=== PATIENT | male | born 1955 | race Caucasian/White ===

== ENCOUNTER 2018-12-29 09:17 | Outpatient (CLI) | payer MEDICARE, OTHER ==
--- NOTE | 2018-12-31 17:05 | CONSULTATION REPORT ---
CHIEF COMPLAINT: Back pain. HISTORY OF PRESENT ILLNESS: Patient is a 63-year-old male who presents for evaluation of chronic low back pain. He states that he has had pain for many years and has actually been seeing Dr. Rivero at the [facility] in [place]. However, the patient was not pleased with his care there and ended up switching to Dr. Figueroa at [facility] in [place]. Apparently, the patient is planning on having a spinal cord stimulator for treatment of his low back pain to be performed by Dr. Figueroa, however, the patient has recently diagnosed atrial fibrillation and is working with his director critical care, Dr. Early for evaluation to obtain surgical clearance to have the stimulator placed. Patient presents today requesting pain medication management. He states that Dr. Figueroa in [place] is not willing to prescribe pain medications. He wants to stay with Dr. Figueroa for interventional procedures, but he is looking for a pain medication management physician. Low back pain is described as chronic, throbbing, aching, stabbing in character rated 10/10 intensity. Pain is located diffusely throughout the low back with radiation to the lower extremities. He endorses generalized weakness in the lower extremities but denies focal weakness. He denies saddle anesthesia, bowel or bladder incontinence. Pain is worse with any sort of activity, especially standing, walking, bending, lifting. Pain is improved with rest and pain medications. He is currently taking Hysingla ER 20 mg daily and oxycodone 10 mg q6 hours p.r.n. He also takes alprazolam 1 mg t.i.d. Patient states that these medications only provide very minimal pain relief and he would like much stronger medications. PAST MEDICAL HISTORY: PHM includes agoraphobia, PTSD, anxiety, depression. PAST SURGICAL HISTORY: Partial surgical colon resection. History of pleomorphic adenoma of the salivary gland and history of cholecystectomy. FAMILY HISTORY: FH was reviewed and is shown in chart. Mother and sister have history of breast cancer. Father is with history of pancreatic cancer. SOCIAL HISTORY: Patient is a current everyday smoker. He denies alcohol or illegal drug use. He does drink caffeine daily. REVIEW OF SYSTEMS: A 14-point review of systems was performed and was normal except as identified in HPI. For complete review of systems see medical chart. PAST TREATMENT HISTORY: Interventional lumbar procedures performed by Dr. Rivero. No medical records on specific procedures performed. PAIN MEDICATION HISTORY: Hysingla ER 20 mg daily, oxycodone 10 mg q6 p.r.n., alprazolam 1 mg t.i.d. PHYSICAL EXAM: Vitals: Blood pressure 147/87, pulse 81, respirations 20. Temperature 98 degrees Fahrenheit, O2 saturation is 89% on room air. General: The patient is alert and oriented x4 in no acute distress. He has normal body stature. Patient ambulated into clinic without assistive devices. Gait is nonantalgic. HEENT: Pupils are equal and reactive to light and accommodation Extraocular muscles intact. Cardiovascular: Regular rate and rhythm, no murmurs, rubs or gallops. Pulmonary: Lungs are clear to auscultation bilaterally. Abdomen: Soft, nontender, nondistended. No hepatosplenomegaly. : Deferred. Skin: No rashes or lesions observed. Musculoskeletal: Low back: Range of motion is decreased in flexion and extension with pain at end range. Tenderness to palpation diffusely throughout the low back including spinous processes, lumbar paraspinal muscles, quadratus lumborum. Positive OMAR. Positive FAIR. Positive Stinchfield. Negative straight leg raise but it causes axial pain. Hips: Range of motion is decreased in bilateral hips with flexion, internal rotation and external rotation. No groin pain. Negative OMAR. Negative FAIR. Negative Stinchfield. Neurologic: Cranial nerves II-XII are grossly intact. Deep tendon reflexes are 1/4 at bilateral patellar tendons and 0/4 at bilateral Achilles tendons. Manual muscle testing shows strengths of 5/5 in bilateral lower extremities with 5/5 hip flexion, hip abduction, knee flexion, knee extension, dorsiflexion, EHL extension, and plantar flexion. Sensation to light touch is intact in bilateral lower extremities and all dermatomes symmetrically. Plantar reflexes are down- going bilaterally. No clonus or fasciculations observed. ASSESSMENT: 1. Chronic pain syndrome. 2. Chronic low back pain. 3. Lumbar facet arthropathy. 4. Probable lumbar spinal stenosis and lumbar degenerative disc disease. 5. Opioid use disorder. PLAN: 1. I had a long discussion with the patient and informed him that due to the nature of my intermittent presence at the [facility] I am unable to appropriately manage patients pain medications and therefore I am not accepting patients for pain medication management out of the [facility]. I also advised the patient that since my focus is on interventional pain treatments and he is already working with Dr. Figueroa at [facility] in [place], that it is not necessary or appropriate for him to have 2 interventional physicians and therefore I do not have anything I can really offer this patient. I did offer to refer him to one of [facility] pain medication physicians that does perform pain medication management and patient initially was not happy with the idea of having to drive to [place] but he stated that he did not have any other options at this time so he is willing to come to [place] so I agreed to put in a referral. 2. Consult to Dr. Ibarra at [facility] for pain medication management. NOTE: I spent greater than 30 minutes with this patient of which greater than 50% was spent in counseling and coordination of care for his chronic pain syndrome and chronic low back pain. ([id number]) Tee Hollingsworth M.D. (Dictated/Not Signed) [place] Job#: [id number]
== END 2018-12-29 09:19 ==
LOC: OUT 09:17
PROVIDERS: ATTEND Physical Medicine & Rehabilitation
DX: G89.4 Chronic pain syndrome (principal); M54.5 Low back pain; M12.88 Other specific arthropathies, not elsewhere classified, other specified site; F11.90 Opioid use, unspecified, uncomplicated
CPT/HCPCS: 99214; G0463